=== PATIENT | female | born 1930 | race Caucasian/White ===

== ENCOUNTER 2018-07-11 19:19 | Inpatient (IN) | payer MEDICARE, OTHER ==
[~2018-07-11] VITALS: Ht 172.7 cm; Wt 96.2 kg
--- NOTE | ~2018-07-11 | MORECARE ---
CASE MANAGEMENT DISCHARGE SUMMARY PATIENT: YAYA JUSTIN UNIT: [id number] ADM DATE: 07/11/18 AGE: 88 : 31 SEX: F ROOM/BED: D.2226 AUTHOR: SCOT MORE PHYSICIAN: REFERRING PHYSICIAN: KAUSHIK PBAON MD DATE OF SERVICE: 07/12/18 Discharge Plan Patient Name: [facility] JUST[facility] [facility] 1930 Planned Disposition: Home Anticipated Discharge Date: Discharge Date: Expected LOS: Initial Reviewer: [email or web address] Initial Review Date: 07/12/2018 Generated: 07/12/18 4:28 pm DCPIA - Discharge Planning Initial Assessment Updated by [email or web address]: Carmen Head on 07/12/18 3:26 pm * Is the patient Alert and Oriented? No * How many steps to enter\exit or inside your home? 2/0 * PCP Dr. Alban Gar in [place] * Pharmacy [facility] in [place] * Preadmission Environment Home with Family * ADLs Partial Dependent * Partial ADLs (Assistance needed) Ambulation Bathing Dressing Medication Management * Equipment Cane CPAP Oxygen Shower Chair * Other Equipment Portable oxygen * List name and contact numbers for known caregivers / representatives who currently or will assist patient after discharge: Raghu yanes - [phone] * Verbal permission to speak to the caregivers and representatives has been obtained from the patient. N/A * Community resources currently utilized None * Please name any agencies selected above. DME company is [facility] * Additional services required to return to the preadmission environment? Yes * Can the patient safely return to the preadmission environment? Yes * Has this patient been hospitalized within the prior 30 days at any hospital? No Patient Name: YAYA JUSTIN Page [id number] at 1528 All edits/amendments must be made on the electronic document DICTATION DATE: 07/12/181526 STIFF NECK LOADER: JORGE 07/12/181526 RPT#: [id number] DC DATE: STATUS: ADM IN [facility] [address] [place] [address] END OF REPORT
--- NOTE | ~2018-07-11 | MORECARE ---
CASE MANAGEMENT DISCHARGE SUMMARY PATIENT: YAYA JUSTIN UNIT: [id number] ADM DATE: 07/11/18 AGE: 88 : 31 SEX: F ROOM/BED: D.2226 AUTHOR: DERIK,DOC PHYSICIAN: REFERRING PHYSICIAN: KAUSHIK PABON MD DATE OF SERVICE: 07/12/18 Discharge Plan Patient Name: YAYA JUSTIN Facility: [facility]:[place] : 1930 Planned Disposition: Home Anticipated Discharge Date: Discharge Date: Expected LOS: Initial Reviewer: [email or web address] Initial Review Date: 07/12/2018 Generated: 07/12/18 4:36 pm Comments DCP- Discharge Planning Updated by [email or web address]: Carmen Haed on 07/12/18 2:[address] Patient Name: YAYA JUSTIN Admission Status: ER Accout number: [id number] Admission Date: 07-11-2018 : 1930 Admission Diagnosis: Attending: KAUSHIK PABON Current LOS: 1 Anticipated DC Date: Planned Disposition: Home Primary Insurance: MEDICARE A & B Discharge Planning Comments: CM met with patient's son in patient room. Patient sleeps during assessment. She lives with her son and his in a one story home. Son states there are 2 steps to get into the home. He states she has a cane and only uses it when she goes outside or feels weak and uses it for balance. He states that he sets up her medication for her. His assists her with bathing and dressing if needed. States he would like to take her home on discharge, but may need rehab or home health. States he would like to wait until he sees how she does over the course of her hospitalization. CM will continue to follow and assist with discharge planning/needs. Director Search Marketing Strategies: Carmen Head DCPIA - Discharge Planning Initial Assessment Updated by [email or web address]: Carmen Head on 07/12/18 3:26 pm * Is the patient Alert and Oriented? No * How many steps to enter\exit or inside your home? 2/0 * PCP Dr. Alban Gar in [place] * Pharmacy [facility] in [place] * Preadmission Environment Home with Family * ADLs Partial Dependent * Partial ADLs (Assistance needed) Ambulation Bathing Dressing Medication Management * Equipment Cane CPAP Oxygen Shower Chair * Other Equipment Portable oxygen * List name and contact numbers for known caregivers / representatives who currently or will assist patient after discharge: Raghu yanes - [phone] * Verbal permission to speak to the caregivers and representatives has been obtained from the patient. N/A * Community resources currently utilized None * Please name any agencies selected above. DME company is [facility] * Additional services required to return to the preadmission environment? Yes * Can the patient safely return to the preadmission environment? Yes * Has this patient been hospitalized within the prior 30 days at any hospital? No Last DP export: 07/12/18 2:28 p Patient Name: YAYA JUSTIN Page [id number] at 1536 All edits/amendments must be made on the electronic document DICTATION DATE: 07/12/18 153 FLOATLIGHT LOADING SUPERVISOR: JORGE 07/12/181534 RPT#: [id number] DC DATE: STATUS: ADM IN [facility] [address] [place] [address] END OF REPORT
--- NOTE | ~2018-07-11 | EC ---
PATIENT:YAYA JUSTIN DATE OF SERVICE: 07/11/18 SEX: F MEDICAL RECORD: [id number] DATE OF : 32 LOCATION:[facility] AGE OF PATIENT: 88 ADMISSION DATE: 07/11/18 REFERRING PHYSICIAN: INTERPRETING PHYSICIAN: YOVANI MCKAY MD ECHOCARDIOGRAM REPORT ECHO CHARGES 4 ECHO COMPLETE Date: 07/13/18 CLINICAL DIAGNOSIS: MVP ECHOCARDIOGRAPHIC MEASUREMENTS (adult normal given) AC root (d.<3.7cm) 2.7 cm LV Septum d (<1.2 cm> 2.0 cm Valve Excursion 1.3 cm LV Septum (systole) 2.3 cm Left Atria (s.<4.0cm> 4.2 cm LVPW d(<1.2cm) 1.1 cm RV (d.<2.3cm) 2.0 cm LVPW (sytole) 1.2 cm LV diastole(<5.6CM) 4.5 cm MV E-F(>70mm/sec) cm LV systole 3.3 cm LVOT Diameter 1.8 cm MV exc.(>10mm) cm Est.ejection fraction (50-75%) % DOPPLER: LVIT cm/sec A 115 cm/sec E 97 cm/sec LA cm/sec RVSP 40.1 mmHg LVOT 146 cm/sec AOP1/2T m/s Asc. Ao 200 cm/sec RVOT 81 cm/sec RA cm/sec PA 81 cm/sec AV Gradient Peak 16.0 mmHg AV Mean 9.0 mmHg AV Area 2.1 cm MV Gradient Peak 6.5 mmHg MV Mean 2.6 mmHg MV Area cm COMMENTS: Cod Clerk: Zuleyma BRITTONLEXIE JOSÉ MIGUEL Planning Aide: 1 Dr. Mckay TAPE# PACS Pericardial Effusion N DATE OF SERVICE: 07/14/2018 FINDINGS: 1. Left ventricular chamber size is within normal limits. Left ventricular systolic function is normal. Overall ejection fraction estimated at 60%. 2. Left atrium is enlarged at 4.2 cm. Right atrium and right ventricular chamber sizes are as well mildly dilated. 3. Valvular structures have normal structure and motion. 4. Doppler interrogation reveals only mild tricuspid regurgitation. No other valvular insufficiency or stenosis. ECHOCARDIOGRAM REPORT [id number] YAYA JUSTIN 5. No evidence of pericardial effusion or left ventricular thrombus. TRANSINT:[id number] Voice Confirmation ID: [id number] DOCUMENT ID: [id number] YOVANI MCKAY MD at 1059 CC: [id number] DICTATION DATE: 07/14/18 1242 TORTILLA MAKER: 07/14/18 1302 ADM IN [facility] [address] [place] [id number]
--- NOTE | ~2018-07-11 | MORECARE ---
CASE MANAGEMENT DISCHARGE SUMMARY PATIENT: YAYA JUSTIN UNIT: [id number] ADM DATE: 07/11/18 AGE: 88 : 31 SEX: F ROOM/BED: D.2226 AUTHOR: DERIK,DOC PHYSICIAN: REFERRING PHYSICIAN: KAUSHIK PABON MD DATE OF SERVICE: 07/18/18 Discharge Plan Patient Name: YAYA JUSTIN Facility: [facility]:[place] : 1930 Planned Disposition: Home Anticipated Discharge Date: Discharge Date: 07/16/2018 Expected LOS: Initial Reviewer: [email or web address] Initial Review Date: 07/12/2018 Generated: 07/18/18 3:34 pm Comments DCP- Discharge Planning Updated by [email or web address]: Carmen Head on 07/12/18 2:[address] Patient Name: YAYA JUSTIN Admission Status: ER Accout number: [id number] Admission Date: 07-11-2018 : 1930 Admission Diagnosis: Attending: KAUSHIK PABON Current LOS: 1 Anticipated DC Date: Planned Disposition: Home Primary Insurance: MEDICARE A & B Discharge Planning Comments: CM met with patient's son in patient room. Patient sleeps during assessment. She lives with her son and his in a one story home. Son states there are 2 steps to get into the home. He states she has a cane and only uses it when she goes outside or feels weak and uses it for balance. He states that he sets up her medication for her. His assists her with bathing and dressing if needed. States he would like to take her home on discharge, but may need rehab or home health. States he would like to wait until he sees how she does over the course of her hospitalization. CM will continue to follow and assist with discharge planning/needs. Digital Production Artist: Carmen Head DCPIA - Discharge Planning Initial Assessment Updated by [email or web address]: Carmen Head on 07/12/18 3:26 pm * Is the patient Alert and Oriented? No * How many steps to enter\exit or inside your home? 2/0 * PCP Dr. Alban Gar in [place] * Pharmacy [facility] in [place] * Preadmission Environment Home with Family * ADLs Partial Dependent * Partial ADLs (Assistance needed) Ambulation Bathing Dressing Medication Management * Equipment Cane CPAP Oxygen Shower Chair * Other Equipment Portable oxygen * List name and contact numbers for known caregivers / representatives who currently or will assist patient after discharge: Raghu Justin - joaquín - [phone] * Verbal permission to speak to the caregivers and representatives has been obtained from the patient. N/A * Community resources currently utilized None * Please name any agencies selected above. DME company is [facility] * Additional services required to return to the preadmission environment? Yes * Can the patient safely return to the preadmission environment? Yes * Has this patient been hospitalized within the prior 30 days at any hospital? No Last DP export: 07/12/18 2:36 p Patient Name: YAYA JUSTIN Page [id number] at 1434 All edits/amendments must be made on the electronic document DICTATION DATE: 07/18/181432 TRANSPORTATION MAINTENANCE OPERATOR: JORGE 07/18/18 143 RPT#: [id number] DC DATE:07/16/18 STATUS: DIS IN [facility] [address] [place] [address] END OF REPORT
[2018-07-11 19:49] LABS: BASOPHILS 0.4 % (0-2); HEMATOCRIT 38.5 % (36.0-48.0); HEMOGLOBIN 13.3 g/dL (12-16); LYMPHOCYTES 13.6 % (15-50); MCHC 34.5 g/dL (31.0-37.0); MCV 89.7 fL (80.0-100.0); MEAN PLATELET VOLUME 10.5 fL (7.4-10.4); MONOCYTES 4.5 % (2-11); NEUTROPHILS 79.5 % (40-80); PLATELET COUNT 163 10x3/uL (130-400); RBC 4.29 10x6/uL (4.00-5.40); RDW 13.7 % (11.5-14.5); WBC 9.4 10x3/uL (4.8-10.8)
[2018-07-11] MEDS ORDERED: CARDIZEM CD360 MG PO (19:56)
[2018-07-11] MEDS ORDERED: VASOTEC20 MG PO (19:57)
[2018-07-11] MEDS ORDERED: DONEPEZIL HCL10 M1 PO (19:57)
[2018-07-11] MEDS ORDERED: SYNTHROID100 MCG PO (19:57)
[2018-07-11] MEDS ORDERED: TOPROL XL50 MG PO (19:57)
[2018-07-11] MEDS ORDERED: NAMENDA5 MG PO (19:57)
[2018-07-11] MEDS ORDERED: ZYRTEC10 MG PO (19:58)
[2018-07-11] MEDS ORDERED: NITROSTAT0.4 MG SL (19:58)
[2018-07-11 19:59] LABS: APTT 27.3 SECONDS (22.8-39.4); INR 0.94 (0.85-1.17); PROTIME 12.2 SECONDS (11.6-15.0)
[2018-07-11 20:07] LABS: ALBUMIN 3.6 g/dL (3.4-5.0); ALKALINE PHOSPHATASE 114 U/L (46-116); ALT (SGPT) 20 U/L (10-68); BILIRUBIN - TOTAL 0.43 mg/dL (0.2-1.3); CALC OSMOLALITY 271 mosm/kg (275-300); CALCIUM 9.5 mg/dL (8.5-10.1); CARBON DIOXIDE 23.2 mmol/L (21.0-32.0); CHLORIDE - SERUM 98 mmol/L (98-107); GLUCOSE 142 mg/dL (74-106); POTASSIUM - SERUM 3.2 mmol/L (3.5-5.1); PROTEIN - SERUM 7.2 g/dL (6.4-8.2); SODIUM 135 mmol/L (136-145); UREA NITROGEN 12 mg/dL (7-18); eGFR NON AFRICAN AMERICAN 55 mL/min (90-120)
[2018-07-11 20:19] LABS: CKMB 1.1 U/L (0.0-3.6); CREATINE KINASE 89 UL (21-215); LIPASE 125 U/L (73-393); THYROID STIMULATING HORMONE 9.16 uIU/mL (0.36-3.74)
[2018-07-11 20:21] LABS: TROPONIN-I < 0.017 ng/mL (0.000-0.060)
[2018-07-11 20:30] VITALS: BP 151/77
[2018-07-11 21:09] LABS: APPEARANCE CLEAR (CLEAR); BILIRUBIN NEGATIVE (NEGATIVE); COLOR YELLOW (YELLOW); GLUCOSE NEGATIVE (NEGATIVE); KETONE NEGATIVE (NEGATIVE); NITRITE NEGATIVE (NEGATIVE); PROTEIN TRACE mg/dL (NEGATIVE); SPECIFIC GRAVITY 1.015 (1.005-1.020); UROBILINOGEN NORMAL (NORMAL)
[2018-07-11 21:18] LABS: UDS - AMPHET NEGATIVE QUAL (NEGATIVE); UDS - BARB NEGATIVE QUAL (NEGATIVE); UDS - BENZO NEGATIVE QUAL (NEGATIVE); UDS - COCAINE NEGATIVE QUAL (NEGATIVE); UDS - OPIATE NEGATIVE QUAL (NEGATIVE); UDS - PCP NEGATIVE QUAL (NEGATIVE); UDS - THC NEGATIVE QUAL (NEGATIVE)
[2018-07-11 21:38] VITALS: BP 138/82
[2018-07-11 22:39] VITALS: BP 141/69
[2018-07-12 02:13] VITALS: BP 173/65; BMI 32.3
[2018-07-12 05:00] VITALS: BP 169/72
[2018-07-12 08:19] VITALS: BP 149/76
[2018-07-12 13:51] VITALS: Ht 172.7 cm; Wt 96.2 kg
[2018-07-12 16:16] VITALS: BP 191/78
[2018-07-12 20:00] VITALS: BP 172/71
[2018-07-13] VITALS: BP 154/64
[2018-07-13 04:00] VITALS: BP 195/76
[2018-07-13 06:32] LABS: BASOPHILS 0.3 % (0-2); EOSINOPHILS 0.3 % (0-7); HEMOGLOBIN 12.3 g/dL (12-16); IMMATURE GRANULOCYTES 0.3 % (0-5); LYMPHOCYTES 17.7 % (15-50); MCH 30.8 pg (26.0-34.0); MCHC 33.2 g/dL (31.0-37.0); MEAN PLATELET VOLUME 10.8 fL (7.4-10.4); MONOCYTES 5.6 % (2-11); NEUTROPHILS 75.8 % (40-80); PLATELET COUNT 142 10x3/uL (130-400); RDW 13.8 % (11.5-14.5); WBC 7.7 10x3/uL (4.8-10.8)
[2018-07-13 06:33] LABS: CALCIUM 8.4 mg/dL (8.5-10.1); CARBON DIOXIDE 24.8 mmol/L (21.0-32.0); CHLORIDE - SERUM 104 mmol/L (98-107); SODIUM 138 mmol/L (136-145); T4 THYROXIN - FREE 0.98 ng/dL (0.76-1.46)
[2018-07-13 06:35] LABS: CALC OSMOLALITY 272 mosm/kg (275-300); CREATININE - SERUM 0.7 mg/dL (0.6-1.3); GLUCOSE 87 mg/dL (74-106); MCV 92.5 fL (80.0-100.0); POTASSIUM - SERUM 3.8 mmol/L (3.5-5.1); UREA NITROGEN 6 mg/dL (7-18); eGFR NON AFRICAN AMERICAN 84 mL/min (90-120)
[2018-07-13 09:57] VITALS: BP 169/89
[2018-07-13 12:48] VITALS: BP 162/71
[2018-07-13 17:01] LABS: ERYTHROCYTE SEDIMENTATION RATE 15 mm/hr (0-42)
[2018-07-13 17:08] VITALS: BP 158/73
[2018-07-13 20:00] VITALS: BP 193/80
[2018-07-14 05:08] LABS: BASOPHILS 0.2 % (0-2); EOSINOPHILS 0.9 % (0-7); HEMATOCRIT 35.8 % (36.0-48.0); IMMATURE GRANULOCYTES 0.3 % (0-5); LYMPHOCYTES 14.6 % (15-50); MCH 30.6 pg (26.0-34.0); MCHC 33.5 g/dL (31.0-37.0); MCV 91.3 fL (80.0-100.0); MEAN PLATELET VOLUME 10.9 fL (7.4-10.4); MONOCYTES 8.6 % (2-11); NEUTROPHILS 75.4 % (40-80); PLATELET COUNT 141 10x3/uL (130-400); RBC 3.92 10x6/uL (4.00-5.40); RDW 13.7 % (11.5-14.5); WBC 9.2 10x3/uL (4.8-10.8)
[2018-07-14 05:25] LABS: ANION GAP 10.6 mmol/L (8-16); CALCIUM 8.3 mg/dL (8.5-10.1); CARBON DIOXIDE 29.6 mmol/L (21.0-32.0); CREATININE - SERUM 0.8 mg/dL (0.6-1.3)
[2018-07-14 05:27] LABS: POTASSIUM - SERUM 3.2 mmol/L (3.5-5.1)
[2018-07-14 09:05] VITALS: BP 145/76
[2018-07-14 16:19] VITALS: BP 157/55
[2018-07-14 20:00] VITALS: BP 164/68
[2018-07-15 04:00] VITALS: BP 186/78
[2018-07-15 05:49] LABS: BASOPHILS 0.4 % (0-2); EOSINOPHILS 1.6 % (0-7); HEMATOCRIT 37.4 % (36.0-48.0); HEMOGLOBIN 12.6 g/dL (12-16); IMMATURE GRANULOCYTES 0.2 % (0-5); LYMPHOCYTES 22.6 % (15-50); MCH 30.6 pg (26.0-34.0); MCHC 33.7 g/dL (31.0-37.0); MCV 90.8 fL (80.0-100.0); MEAN PLATELET VOLUME 10.9 fL (7.4-10.4); MONOCYTES 11.5 % (2-11); NEUTROPHILS 63.7 % (40-80); PLATELET COUNT 155 10x3/uL (130-400); RBC 4.12 10x6/uL (4.00-5.40); RDW 13.7 % (11.5-14.5); WBC 8.2 10x3/uL (4.8-10.8)
[2018-07-15 06:11] LABS: CALCIUM 8.3 mg/dL (8.5-10.1); CARBON DIOXIDE 30.8 mmol/L (21.0-32.0); MAGNESIUM - SERUM 1.4 mg/dL (1.8-2.4)
[2018-07-15 07:14] LABS: POTASSIUM - SERUM 2.8 mmol/L (3.5-5.1)
[2018-07-15 08:18] VITALS: BP 172/63
[2018-07-15 12:47] VITALS: BP 144/87
[2018-07-15 16:57] VITALS: BP 135/58
[2018-07-15 21:16] VITALS: BP 157/57
[2018-07-16 04:17] VITALS: BP 164/66
[2018-07-16 06:42] LABS: BASOPHILS 0.4 % (0-2); EOSINOPHILS 3.4 % (0-7); HEMATOCRIT 37.5 % (36.0-48.0); HEMOGLOBIN 12.7 g/dL (12-16); IMMATURE GRANULOCYTES 0.2 % (0-5); LYMPHOCYTES 24.7 % (15-50); MCH 31.1 pg (26.0-34.0); MCHC 33.9 g/dL (31.0-37.0); MCV 91.7 fL (80.0-100.0); MEAN PLATELET VOLUME 10.8 fL (7.4-10.4); MONOCYTES 10.8 % (2-11); NEUTROPHILS 60.5 % (40-80); PLATELET COUNT 172 10x3/uL (130-400); RBC 4.09 10x6/uL (4.00-5.40); RDW 13.7 % (11.5-14.5); WBC 8.5 10x3/uL (4.8-10.8)
[2018-07-16 07:00] LABS: ANION GAP 7.3 mmol/L (8-16); CALCIUM 8.3 mg/dL (8.5-10.1); CARBON DIOXIDE 33.1 mmol/L (21.0-32.0); CREATININE - SERUM 0.9 mg/dL (0.6-1.3)
[2018-07-16 07:07] LABS: POTASSIUM - SERUM 3.4 mmol/L (3.5-5.1)
[2018-07-16 08:43] VITALS: BP 170/67
[2018-07-16 12:00] VITALS: BP 156/62
[2018-07-16 15:00] VITALS: BP 142/64
[2018-07-16] MEDS ORDERED: MIRALAX17 GM PO (16:28)
[2018-07-16] MEDS ORDERED: KEPPRA500 MG PO (16:30)
[2018-07-16] MEDS ORDERED: K-TAB10 MEQ PO (16:33)
== END 2018-07-16 19:45 | disposition home or self-care (01) | DRG 193 ==
LOC: D.ER 19:19 → D.MS 21:45
PROVIDERS: Family Medicine; Internal Medicine Nephrology
DX: J18.1 Lobar pneumonia, unspecified organism (principal); G92 Toxic encephalopathy; M48.56XA Collapsed vertebra, not elsewhere classified, lumbar region, initial encounter for fracture; R56.9 Unspecified convulsions; G47.33 Obstructive sleep apnea (adult) (pediatric); I25.10 Atherosclerotic heart disease of native coronary artery without angina pectoris; G30.9 Alzheimer's disease, unspecified; F02.80 Dementia in other diseases classified elsewhere, unspecified severity, without behavioral disturbance, psychotic disturbance, mood disturbance, and anxiety; E03.9 Hypothyroidism, unspecified; M51.36 Other intervertebral disc degeneration, lumbar region; I10 Essential (primary) hypertension; F32.9 Major depressive disorder, single episode, unspecified; K57.90 Diverticulosis of intestine, part unspecified, without perforation or abscess without bleeding; Z95.5 Presence of coronary angioplasty implant and graft; Z87.891 Personal history of nicotine dependence